=== PATIENT | male | born 1950 | race Caucasian/White ===

== ENCOUNTER 2022-11-13 10:22 | Outpatient (CLI) | payer MEDICARE, SELFPAY ==
[2022-11-13 15:19] LABS: Albumin* 4.3 g/dL (3.3-5.0)
[2022-11-13 15:20] LABS: Chloride* 104 mmol/L (96-114); Potassium* 4.5 mmol/L (3.6-5.1); Sodium* 139 mmol/L (135-149)
[2022-11-13 15:22] LABS: Aspartate Amino Transferase* 23 U/L (12-35); Bilirubin Total* 0.8 mg/dL (0.1-1.5); Carbon Dioxide* 29 mmol/L (20-32); Estimated Glomerular Filt Rate 79 ml/min
[2022-11-13 15:23] LABS: Alanine Aminotransferase* 29 U/L (4-50); Alkaline Phosphatase* 62 U/L (40-150); Blood Urea Nitrogen* 25 mg/dL (7-30); Calcium* 9.2 mg/dL (8.4-10.6); Glucose* 117 mg/dL (60-115); HDL Cholesterol* 40 mg/dL (>=40); Total Protein* 6.6 g/dL (6.0-8.3); Triglycerides* 153 mg/dL (40-149)
[2022-11-13 15:52] LABS: PSA Screen* 0.43 ng/mL (0.10-4.00)
[2022-11-14 19:05] LABS: Cholesterol* 109 mg/dL (90-199); LDL Cholesterol Calculated 38 mg/dL (<100)
== END 2022-11-13 10:23 | disposition home or self-care (01) ==
PROVIDERS: PCP Internal Medicine; Visit Provider Internal Medicine
DX: Z00.00 Encounter for general adult medical examination without abnormal findings (principal); N40.0 Benign prostatic hyperplasia without lower urinary tract symptoms; I25.10 Atherosclerotic heart disease of native coronary artery without angina pectoris; E78.6 Lipoprotein deficiency; E78.5 Hyperlipidemia, unspecified; I10 Essential (primary) hypertension
CPT/HCPCS: 80053; 80061; 84153

== ENCOUNTER 2023-11-15 09:09 | Outpatient (CLI) | payer MEDICARE, SELFPAY ==
--- OUTSIDE RECORDS SUMMARY | 2023-11-21 09:21 | XMS_ITS | Clinical Summary ---
Author Name Unknown Organization [employer] [facility] Address [place], [place] [address] Care Team Providers Care Broadcast Producer Name Role Phone Donny Koehler MD Primary Care Provider Allergies No known active allergies Medications Medication Sig Dispensed Refills Start Date End Date Status traZODone (DESYREL) 100 mg tablet Take 1 tablet by mouth at bedtime. 0 Active aspirin (ECOTRIN) 81 mg enteric coated tablet Take 1 tablet by mouth once daily with a meal. 0 Active dextroamphetamine-amp hetamine (ADDERALL XR) 30 mg Extended-Release capsule 0 07/13/2020 Active atorvastatin (LIPITOR) 20 mg tabletIndications:Cor onary artery disease involving craig coronary artery of craig heart without angina pectoris,Ascending aorta enlargement (HC) Take 1 Tablet (20 mg) by mouth once daily. 90 tablet. 3 03/30/2022 Active metoprolol succinate (TOPROL XL) 50 mg sustained-release tabletIndications:Cor onary artery disease involving craig coronary artery of craig heart without angina pectoris,Ascending aorta enlargement (HC) Take 1 Tablet (50 mg) by mouth once daily. 90 tablet. 3 03/30/2022 Active Active Problems No known active problems Social History Tobacco Use Types Packs/Day Years Used Date Smoking Tobacco: Former Smokeless Tobacco: Never Alcohol Use Standard Drinks/Week Comments Yes 0 (1 standard drink = 0.6 oz pur e alcohol) Social Connections Answer Date Recorded Frequency of Communication with Friends and Fami ly Not on file 11/11/2021 Financial Resource Strain Answer Date R ecorded Difficulty of Paying Living Expenses Not on file 11/11/2021 Difficulty of Paying Living Expenses Not on file 11/11/2021 Sex and Gender Information Value Date Recorded Sex Assigned at Not on file Gender Identity Not on file Sexual Orientation Not on file Obstetrics History Last Filed Vital Signs Vital Sign Reading Time Taken Comments Blood Pressure 124/76 03/30/2022 8:46 AM CDT Pulse 65 03/30/2022 8:46 AM CDT Temperature 36.4 ??C (97.5 ??F) 12/28/2021 9:50 AM CS T Respiratory Rate 14 03/31/2021 12:01 PM CDT Oxygen Saturation 99% 12/28/2021 9:50 AM RUG HOOKER Inhaled Oxygen Concentration - - Weight 89.4 kg (197 lb) 03/30/2022 8:46 AM CDT Height - - Body Mass Index - - Plan of Treatment Health Maintenance Due Date Last Done Comments Tdap 01/20/1960 Depression screening for age 12+ 1961 BMI (ht and wt on same day) for age 18+ 1967 Hepatitis C screening for age 18-79 1967 Tetanus booster 1969 Colonoscopy through age 75 1994 Lipids for age 45-75 1994 Zoster (shingles) series for age 50+ (1 of 2) 1999 Medicare Wellness for age 65+ 2014 Pneumococcal series for age 65+ (1 of 1 - PCV) 2014 COVID-19 vaccine series ( season) 2023 08/14/2021, 12/31/2020, 12/09/2020 Influenza for age 65+ 07/12/2023 Care Teams Broadcast Producer Relationship Specialty Start Date End Date Donny Koehler MD [address] [place] [address] PCP - General Internal Medicine 03/01/20
== END 2023-11-15 09:10 | disposition home or self-care (01) ==
LOC: NFLDREF 11-21 09:19
PROVIDERS: PCP Internal Medicine; Referring Provider Internal Medicine; Visit Provider Internal Medicine
DX: E78.5 Hyperlipidemia, unspecified (principal); I10 Essential (primary) hypertension; N40.0 Benign prostatic hyperplasia without lower urinary tract symptoms; Z12.5 Encounter for screening for malignant neoplasm of prostate
CPT/HCPCS: 80053; 80061; G0103

== ENCOUNTER 2024-06-20 18:20 | Emergency (ER) | payer MEDICARE, SELFPAY ==
[2024-06-20] VITALS (22 sets, daily range): BP systolic 108–147; BP diastolic 67–91; PULSE 67–77; RESP 16–18; TEMP 36.9; O2SAT 94–96
--- NOTE | 2024-06-20 18:33 | ED_ITS ---
HPI - Headache General Time Seen by Provider: 18:33 Date Seen: 06/20/24 Chief Complaint: Headache/Migraine Stated Complaint: Fall, head lac, LoC Time Seen by Provider: 06/20/24 18:33 Source: patient and family Mode of arrival: ambulatory Limitations: no limitations History of Present Illness HPI Narrative: Mr. Lugo is a very pleasant 74-year-old gentleman with history of hypertension, coronary artery disease, JULI who comes to the emergency room after a fall and suspected loss of consciousness. Patient currently lives near the [facility] in [facility] and had walked over to [employer]. He notes that he has chronic sciatica and on the way back he felt that he was leaning forward to compensate for that. When he returned to his [facility] he fell off the curb forward. He does not remember this. Workers near by I saw him and came to his rescue. Neighbors were also out walking and brought this gentleman back into his lobby where his was called. He remembers walking back and leaning forward and that he felt weak but notes that this is normal. He does not remember returning to the [facility] nor the fall. Patient notes that he has pain on his face, low back pain on the right that is chronic for him. He does not feel it that he has any more weak than normal. He does note that he ?felt funny in his left arm.? He has sustained abrasion to the palmar surface of his left hand. He denies chest pain or shortness of breath at this time or what he can remember when he was walking. He does have a history of seeing Cardiology at [facility] but denies a history of heart attack or arrhythmia. He is currently taking a baby aspirin daily. He has not taken anything for his pain. He denies any neck pain. Denies headache at this time. Related Data Previous Rx's ?Medication ?Instructions ?Recorded metoprolol succinate 50 mg 50 mg PO QDAY Hypertension #90 tabs 11/19/23 tablet,extended release 24 hr trazodone 100 mg tablet 100 mg PO QDAY Insomnia #90 tabs 11/19/23 atorvastatin 20 mg tablet 20 mg PO QDAY Hyperlipidemia #90 04/07/24 tabs hydrocodone 5 mg-acetaminophen 325 1 tab PO Q8H PRN pain #20 tabs 04/20/24 mg tablet prednisone 20 mg tablet 20 mg PO BID #10 tabs 04/20/24 dextroamphetamine-amphetamine ER 30 mg PO QDAY ADHD #30 caps 06/02/24 30 mg 24hr capsule,extend release Allergies Allergy/AdvReac Type Severity Reaction Status Date / Time No Known Allergies Allergy Unknown Verified 04/20/24 15:47 Review of Systems Status of ROS: Reports: 10 or more systems reviewed and unremarkable except as noted in History and below Const: Denies: fever or chills Eyes: Denies: change in vision or blurry vision ENMT: Denies: throat pain, neck pain or vertigo Cardio: Denies: chest pain, palpitations, swelling of feet/ankles or shortness of breath with exertion Resp: Denies: shortness of breath or cough GI: Denies: abdominal pain, nausea or vomiting : Denies: painful urination Musculo: Reports: back pain (Chronic); Denies: neck pain or extremity pain Integ/Breast: Denies: rash Neuro: Reports: headache and weakness in extremities (Right lower extremity); Denies: numbness in extremities, vertigo, confusion, behavioral changes, slurred speech, difficulty communicating thoughts, seizure-like activity or involuntary movements PFSH PFS Medical History Sciatica ?M54.30 - Sciatica, unspecified side (ICD-10) GERD (gastroesophageal reflux disease) ?K21.9 - Gastro-esophageal reflux disease without esophagitis (ICD-10) Hematoma ?T14.8XXA - Other injury of unspecified body region, initial encounter (ICD- 10) Bursitis ?M71.9 - Bursopathy, unspecified (ICD-10) Impetigo ?L01.00 - Impetigo, unspecified (ICD-10) Wart ?B07.9 - Viral wart, unspecified (ICD-10) ADHD ?F90.9 - Attention-deficit hyperactivity disorder, unspecified type (ICD-10) Colon polyp ?K63.5 - Polyp of colon (ICD-10) Hyperlipidemia ?E78.5 - Hyperlipidemia, unspecified (ICD-10) Insomnia ?G47.00 - Insomnia, unspecified (ICD-10) Hypolipidemia ?E78.6 - Lipoprotein deficiency (ICD-10) Social History What is your current living situation?: I presently have a place to live Problems where you live: no known problems In the past 12 months, utilities in danger of being shut off: no In past 12 months, lack of transportation kept you from medical appts, meetings, work, or getting things needed for daily living: no In the past 12 mos, have been you worried that your food would run out before you had money to buy more?: never true In the past 12 mos, the food you bought just didn't last and you didn't have money to buy more?: never true Smoking Status: Never smoker How often does anyone, including family, friends and others, physically hurt you : never How often does anyone, including family, friends and others, insult or talk down to you: never How often does anyone, including family, friends and others, threaten you with harm: never How often does anyone, including family, friends and others, scream or curse at you: never Little interest or pleasure in doing things: not at all Feeling down, depressed, or hopeless: not at all Exam Narrative: Exam Narrative: Alert and oriented. TT a was called due to loss of consciousness. Patient went immediately to CT upon triage in room 7. Primary survey Airway open. Breathing easy. Circulation-no active bleeding. Disability-obvious swelling around the left periorbital area as well as superficial skin avulsion of the left eyebrow and left cheek. GCS of 15. EOM is full and pupils are equal round reactive. Patient has a E 1-1/2 by point 5 cm skin avulsion over the left eyebrow. There is swelling around the periorbital area extending onto the left cheek where there is tenderness but no movement with palpation. On the left anterior temporal area there is also another area of superficial skin avulsion measuring 2 and half by 1 cm. Patient has also broken his left eye tooth. Tongue appears to be midline as without evidence of trauma. He does have superficial abrasion at the left upper and lower lips. Neck is otherwise supple with no midline tenderness. Oral cavity with moist mucous membranes. Heart with regular rate and rhythm and lungs are clear bilaterally. Abdomen soft nontender. Upper extremity strength and motor is intact with finger to nose. Negative Romberg. Superficial abrasion noted on the left palmar surface of the hand. No active bleeding. Lower extremities without any of bruising abnormality. Patient has weakness in dorsiflexion of the great toe. And hip flexion. He is stating that this is normal. Sensation is fully intact. Palpation down thoracic and lumbar spine without tenderness. No bruising noted on the back. Const: Vital Signs, click to edit/add: Vital Signs - 24 hr 06/20/24 18:25 Temperature 98.5 F Pulse Rate [Right Pulse Oximeter] 77 Respiratory Rate 18 Blood Pressure [Ri ght Upper Arm] 108/75 Pulse Oximetry 96 Oxygen Delivery Me thod Room Air Documenting provider has reviewed patient's vital signs: yes Course Course ED Course: Differential diagnosis is broad in this gentleman with a fall. Unsure if he had prodromal symptoms from underlying cardiac cause, hypotension or he lost his balance given the extensive walking with his chronic right-sided sciatica. Patient will undergo EKG, be placed on surveillance monitor and will have troponin, CBC, comprehensive panel CRP D done. Urinalysis is also ordered. Patient had already received head and cervical spine CT given the amnesia to the event. He certainly has no ongoing amnesia at this point. Will also add a facial CT given the trauma to the left cheek bone and periorbital areas. Reevaluation(s) Reevaluation #1: Continues to feel well with no evidence of arrhythmia. Vital Signs Vital signs: Initial Vital Signs Temperature 98.5 F 06/20/24 18:25 Temperature Source Temporal Artery Scan 06/20/24 18:25 Pulse Rate 77 06/20/24 18:25 Respiratory Rate 18 06/20/24 18:25 Blood Pressure 108/75 06/20/24 18:25 Blood Pressure Mean 86 06/20/24 18:25 Blood Pressure Position Sitting 06/20/24 18:25 Pulse Oximetry 96 06/20/24 18:25 Oxygen Delivery Method Room Air 06/20/24 18:25 Vital Signs Temperature 98.5 F 06/20/24 18:25 Pulse Rate 77 06/20/24 18:25 Respiratory Rate 18 06/20/24 18:25 Blood Pressure 108/75 06/20/24 18:25 Pulse Oximetry 96 06/20/24 18:25 Oxygen Delivery Method Room Air 06/20/24 18:25 Temperature 98.5 F 06/20/24 18:25 Pulse Rate 77 06/20/24 18:25 Respiratory Rate 18 06/20/24 18:25 Blood Pressure 108/75 06/20/24 18:25 Pulse Oximetry 96 06/20/24 18:25 Oxygen Delivery Method Room Air 06/20/24 18:25 MDM - Headache MDM Narrative Medical decision making narrative: 1. 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 Unfortunately patient himself has no recollection of the events. Does not think he had any chest pain but does note that he was walking further than he should have and is fairly certain that this occurred because of his sciatica. He states he found himself leaning forward to compensate and was hurrying home. I have suggested that patient be admitted tonight for ongoing evaluation. When I do speak about this later he is declining and wishes to go home. 2. Closed head injury-patient is amnestic to the events. Fortunately no ongoing anterograde amnesia. Head CT without evidence of intracranial bleed or skull fracture. 3. Syncope -EKG reassuring. T-wave inversions noted in 3 AVF and V1 through V6. Two sets of cardiac enzymes negative. I was able to find an old EKG in our [employer] system and EKG today is unchanged. Unsure if he had true syncope or loss of consciousness and amnesia was secondary to the fall. Again, recommend overnight monitoring but patient is declining at this time. 4. Facial injury-superficial skin avulsions. Does not appear to be any area that we would need to suture. Patient does have up-to-date tetanus. Would suggest application of bacitracin or Vaseline to the area twice daily. 5. Disposition-patient is wishing to go home at this time. I do strategy manager him to be able to make his own decisions at this time. I do explain that I cannot exclude an underlying cardiac cause or worsening sequela from the fall. He and his are present and do agree that they understand this. I would like them to seek medical attention by calling 911 or returning to the ER if Pancho would began experiencing vomiting, confusion, balance problems or worsening symptoms. They do agree. Medical Records Attestation: I reviewed the patient's medical records. Lab Data Attestation: I reviewed the patient's lab results. Labs: Lab Results 06/20/24 06/20/24 Range/Units 19:25 20:15 WBC 9.03 (4.50-11.00) K/uL RBC 4.70 (4.30-5.90) m/uL Hgb 14.8 (13.5-17.5) gm/dL Hct 44.3 (37.0-53.0) % MCV 94 (80-100) fL MCH 32 (26-34) pg MCHC 33 (32-36) gm/dL RDW Coeff of Elias 11.9 (11.5-15.5) % Plt Count 195 (140-440) K/uL Neut % (Auto) 77.7 H (42.0-72.0) % Lymph % (Auto) 12.7 L (20-44) % Levy % (Auto) 8.5 (0.0-11.0) % Eos % (Auto) 0.8 (0.0-7.0) % Baso % (Auto) 0.2 (0.0-3.0) % Neut # (Auto) 7.00 (1.7-7.0) K/uL Lymph # (Auto) 1.10 (0.90-2.90) K/uL Levy # (Auto) 0.80 (0.00-0.90) K/UL Eos # (Auto) 0.07 (0.00-0.50) K/uL Baso # (Auto) 0.02 (0.00-0.30) K/uL Abs Immat Gran (auto) 0.01 (0.00-0.30) K/uL Imm/Tot Granulo (auto) 0.1 % Sodium 137 (135-149) mmol/L Potassium 3.8 (3.6-5.1) mmol/L Chloride 107 (96-114) mmol/L Carbon Dioxide 26 (20-32) mmol/L Anion Gap 4 L (7-15) mEq/L BUN 22 (7-30) mg/dL Creatinine 1.0 (0.5-1.5) mg/dL Estimated GFR 78 ml/min Glucose 108 (60-115) mg/dL Calcium 9.0 (8.4-10.6) mg/dL Total Bilirubin 0.8 (0.1-1.5) mg/dL AST 23 (12-35) U/L ALT 20 (4-50) U/L Alkaline Phosphatase 63 (40-150) U/L Total Protein 6.4 (6.0-8.3) g/dL Albumin 3.9 (3.3-5.0) g/dL Urine Color Yellow (Yellow) Urine Appearance Clear (Clear) Urine pH 6.0 (5.0-8.5) Ur Specific [place] 1.025 (1.000-1.030) Urine Protein Negative (Negative) Urine Glucose (UA) Negative (Negative) Urine Ketones 1+ A (Negative) Urine Blood Negative (Negative) Urine Nitrite Negative (Negative) Urine Bilirubin Negative (Negative) Urine Urobilinogen 1.0 (0.2-1.0) Ur Leukocyte Esterase Negative (Negative) Urine RBC 0-2 (0-2) Urine WBC 0-2 (0-5) Ur Squamous Epith Cells None (None-Few) Urine Bacteria None (None) POC Troponin I 0.01 (0.01-0.04) ng/ml Imaging Data CT scan - head: Attestation: I have reviewed the pertinent imaging results. My impression: I do not note any obvious intracranial bleed or fractures. Radiologist's impression: There is no intra-axial or extra-axial fluid collection. There is no mass effect or midline shift. There is age-related cortical atrophy with mild sulcal widening and ex vacuo dilatation of the lateral ventricles. There are chronic small vessel disease changes in the subcortical and periventricular white matter without lost bowie-white differentiation. The orbits and their contents are grossly within normal limits. The bony calvarium is grossly intact. There is minimal bubbly secretions and air-fluid levels within the maxillary sinuses. Otherwise the paranasal sinuses are clear. The mastoid air cells are well aerated. Impression: Age-related and chronic small-vessel disease changes of the brain without acute intracranial abnormality. Cervical spine CT: Attestation: I have reviewed the pertinent imaging results. Radiologist's impression: The cervical vertebral body heights are grossly maintained with minimal endplate Schmorl`s defects. There is trace anterolisthesis of C2 on C3. Otherwise grossly preserved cervical lordosis. There is no displaced fracture or dislocation. There is [id number] multilevel degenerative disc disease with disc height loss and marginal osteophyte formation. Mild facet arthrosis is appreciated. There is mild biapical pleural thickening. Impression: Moderate degenerative changes of the cervical spine without acute osseous abnormality. Facial CT: Attestation: I have reviewed the pertinent imaging results. Radiologist's impression: eft facial and periorbital hematomas. No underlying fracture. Normal contour of the adjacent globe without evidence of penetrating injury. No radiopaque foreign body. Mild mucosal thickening within the inferior maxillary sinuses with small dependent fluid level on the left. Absent left maxillary lateral incisor perhaps a sequela of trauma. Impression: 1. Left facial and periorbital hematomas. 2. No acute fracture or traumatic subluxation. 3. Absence of the maxillary left lateral incisor tooth, possibly posttraumatic. 4. Mild mucosal thickening within the maxillary sinuses with left maxillary fluid level perhaps reflecting acute sinus disease. ECG Data Attestation: I personally reviewed and interpreted this ECG as follows: ECG interpretation date: 06/20/24 Interpretation: EKG shows sinus rhythm at a rate of 76. T-wave inversion noted in 3 a via V3 through V6. QT and AL intervals within normal limits. EKG in our [employer] EMR shows an EKG that appears the same. No acute changes and T-wave inversions are present. Discharge Plan Discharge Clinical Impression: CHI (closed head injury), Sciatica, Sinusitis, Dental injury Patient Disposition: Home w/ Parent or Adult Condition: Improved Additional Instructions: You may apply a thin layer of bacitracin or Vaseline to the areas of skin avulsion on the face. You can do this twice a day. Monitor for infection. Your tetanus does appear to be up-to-date. Follow-up with Dr. Koehler You have a concussion and therefore I do suggest light activity, avoiding alcohol for at least 48 hours and monitoring. Return to the emergency room for confusion worsening balance problems, vomiting and as needed. On the CT it did appear that you had a sinus infection. Will place you on amoxicillin that can be gained through our [employer] machine. Prescriptions: No Action prednisone 20 mg tablet 20 mg PO BID Qty: 10 0RF hydrocodone-acetaminophen 5-325 mg tablet 1 tab PO Q8H PRN (Reason: pain) Qty: 20 0RF trazodone 100 mg tablet 100 mg PO QDAY Qty: 90 3RF metoprolol succinate 50 mg tablet extended release 24 hr 50 mg PO QDAY Qty: 90 3RF atorvastatin 20 mg tablet 20 mg PO QDAY Qty: 90 3RF dextroamphetamine-amphetamine 30 mg capsule,extended release 24hr 30 mg PO QDAY Qty: 30 0RF Follow Up/Referrals: Donny Koehler MD [Primary Care Provider] - Stand Alone Forms: [id number] Info Instructions
--- NOTE | 2024-06-20 18:40 | CRLHL7_ITS ---
For Patients: As a result of the Century Cures Act, medical imaging exams and procedure reports are released immediately into your electronic medical record. You may view this report before your referring provider. If you have questions, please contact your health care provider. Indication: Fall Technique: Volumetric multidetector CT images of the cervical spine were obtained without the administration of IV contrast. Comparison: None available. Findings: The cervical vertebral body heights are grossly maintained with minimal endplate Schmorl`s defects. There is trace anterolisthesis of C2 on C3. Otherwise grossly preserved cervical lordosis. There is no displaced fracture or dislocation. There is [id number] multilevel degenerative disc disease with disc height loss and marginal osteophyte formation. Mild facet arthrosis is appreciated. There is mild biapical pleural thickening. Impression: Moderate degenerative changes of the cervical spine without acute osseous abnormality. Please note that all CT scans at this facility use dose modulation, iterative reconstruction, and/or weight-based dosing when appropriate to reduce radiation dose to as low as reasonably achievable. Dictated by Bharathi Aldrich MD @ 06/20/2024 7:54:35 PM (Electronically Signed)
--- NOTE | 2024-06-20 18:40 | CRLHL7_ITS ---
For Patients: As a result of the Century Cures Act, medical imaging exams and procedure reports are released immediately into your electronic medical record. You may view this report before your referring provider. If you have questions, please contact your health care provider. Indication: Fall Technique: Volumetric multidetector CT images of the head were obtained without the administration of low osmolar intravenous contrast. Comparison: None available Findings: There is no intra-axial or extra-axial fluid collection. There is no mass effect or midline shift. There is age-related cortical atrophy with mild sulcal widening and ex vacuo dilatation of the lateral ventricles. There are chronic small vessel disease changes in the subcortical and periventricular white matter without lost bowie-white differentiation. The orbits and their contents are grossly within normal limits. The bony calvarium is grossly intact. There is minimal bubbly secretions and air-fluid levels within the maxillary sinuses. Otherwise the paranasal sinuses are clear. The mastoid air cells are well aerated. Impression: Age-related and chronic small-vessel disease changes of the brain without acute intracranial abnormality. Please note that all CT scans at this facility use dose modulation, iterative reconstruction, and/or weight-based dosing when appropriate to reduce radiation dose to as low as reasonably achievable. Dictated by Bharathi Aldrich MD @ 06/20/2024 7:50:24 PM (Electronically Signed)
--- NOTE | 2024-06-20 19:09 | CRLHL7_ITS ---
For Patients: As a result of the Century Cures Act, medical imaging exams and procedure reports are released immediately into your electronic medical record. You may view this report before your referring provider. If you have questions, please contact your health care provider. Indication: Fall, left facial trauma. Technique: Noncontrast CT of the facial bones with multiplanar reconstruction utilizing bone and soft tissue algorithms. Comparison: None available. Findings: Left facial and periorbital hematomas. No underlying fracture. Normal contour of the adjacent globe without evidence of penetrating injury. No radiopaque foreign body. Mild mucosal thickening within the inferior maxillary sinuses with small dependent fluid level on the left. Absent left maxillary lateral incisor perhaps a sequela of trauma. Impression: 1. Left facial and periorbital hematomas. 2. No acute fracture or traumatic subluxation. 3. Absence of the maxillary left lateral incisor tooth, possibly posttraumatic. 4. Mild mucosal thickening within the maxillary sinuses with left maxillary fluid level perhaps reflecting acute sinus disease. Please note that all CT scans at this facility use dose modulation, iterative reconstruction, and/or weight-based dosing when appropriate to reduce radiation dose to as low as reasonably achievable. Dictated by Ward Gaytan MD @ 06/20/2024 8:26:02 PM (Electronically Signed)
--- OUTSIDE RECORDS SUMMARY | 2024-06-20 19:21 | XMS_ITS | Clinical Summary ---
Author Organization [employer] [facility] Address [place], [place] [address] Care Team Providers Care Imaging Specialist Name Role Phone Donny Koehler MD Primary [...] hetamine (ADDERALL XR) 30 mg Extended-Release capsule 07/13/2020 Active atorvastatin (LIPITOR) 20 mg tabletIndications:Cor onary artery disease involving [place] coronary artery of [place] heart without angina pectoris,Ascending aorta enlargement (HC) Take 1 Tablet (20 mg) by mouth once daily. 90 tablet. 3 03/30/2022 Active metoprolol succinate (TOPROL XL) 50 mg sustained-release tabletIndications:Cor onary artery disease involving [place] coronary artery of [place] heart without angina pectoris,Ascending aorta enlargement (HC) [...] CDT Oxygen Saturation 99% 12/28/2021 9:50 AM REIMBURSEMENT ANALYST Inhaled Oxygen Concentration - - Weight 89.4 [...] 08/14/2021, 12/31/2020, 12/09/2020 Influenza for age 65+ 07/12/2024 Care Teams Imaging Specialist Relationship Specialty Start Date End Date Donny Koehler MD [address] [place] [address] PCP - General Internal Medicine 03/01/20
[2024-06-20 19:34] LABS: Basophils Absolute Auto 0.02 K/uL (0.00-0.30); Basophils Percent Auto 0.2 % (0.0-3.0); Eosinophils Absolute Auto 0.07 K/uL (0.00-0.50); Eosinophils Percent Auto 0.8 % (0.0-7.0); Hematocrit 44.3 % (37.0-53.0); Hemoglobin* 14.8 gm/dL (13.5-17.5); Immature Granulocytes Abs Auto 0.01 K/uL (0.00-0.30); Immature Granulocytes Pct Auto 0.1 %; Lymphocytes Percent Auto 12.7 % (20-44); Mean Corpuscular HGB Conc 33 gm/dL (32-36); Mean Corpuscular Hemoglobin 32 pg (26-34); Mean Corpuscular Volume 94 fL (80-100); Monocytes Percent Auto 8.5 % (0.0-11.0); Neutrophils Percent Auto 77.7 % (42.0-72.0); Platelet Count* 195 K/uL (140-440); RDW Coefficient of Variation % 11.9 % (11.5-15.5); White Blood Count* 9.03 K/uL (4.50-11.00)
[2024-06-20 19:39] LABS: Slide Review Reflex No
[2024-06-20 19:47] LABS: Albumin* 3.9 g/dL (3.3-5.0); Chloride* 107 mmol/L (96-114); Potassium* 3.8 mmol/L (3.6-5.1); Sodium* 137 mmol/L (135-149)
[2024-06-20 19:49] LABS: Anion Gap 4 mEq/L (7-15); Aspartate Amino Transferase* 23 U/L (12-35); Bilirubin Total* 0.8 mg/dL (0.1-1.5); Carbon Dioxide* 26 mmol/L (20-32); Estimated Glomerular Filt Rate 78 ml/min
[2024-06-20 19:50] LABS: Alanine Aminotransferase* 20 U/L (4-50); Alkaline Phosphatase* 63 U/L (40-150); Blood Urea Nitrogen* 22 mg/dL (7-30); Glucose* 108 mg/dL (60-115); Total Protein* 6.4 g/dL (6.0-8.3)
[2024-06-20 19:53] LABS: Troponin, Point-of-Care* 0.01 ng/ml (0.01-0.04)
[2024-06-20 20:30] LABS: Appearance Urine Clear (Clear); Bilirubin Urine Negative (Negative); Blood Urine Negative (Negative); Color Urine Yellow (Yellow); Glucose Urine Negative (Negative); Ketones Urine 1+ (Negative); Leukocyte Esterase Urine Negative (Negative); Nitrite Urine Negative (Negative); Protein Urine Negative (Negative); Specific Gravity Urine 1.025 (1.000-1.030)
[2024-06-20 20:34] LABS: RBC Urine 0-2 (0-2); WBC Urine 0-2 (0-5)
[2024-06-20 21:13] LABS: Troponin, Point-of-Care* 0.01 ng/ml (0.01-0.04)
== END 2024-06-20 21:34 | disposition home or self-care (01) ==
PROVIDERS: Emergency Provider Family Medicine; PCP Internal Medicine
DX: S09.90XA Unspecified injury of head, initial encounter (principal); M54.31 Sciatica, right side; J32.9 Chronic sinusitis, unspecified; K08.89 Other specified disorders of teeth and supporting structures
CPT/HCPCS: 36415; 70450; 70486; 72125; 80053; 81001; 84484; 85025; 93005; 99285; 99291; G0390

== ENCOUNTER 2024-06-23 10:45 | Outpatient (RCR) | payer MEDICARE, SELFPAY ==
--- NOTE | 2024-05-01 07:31 | PT.OPEX ---
[facility] Eval Start: 04/30/24 12:35 Freq: Status: Active Protocol: Document 04/30/24 12:36 CRP (Rec: 04/30/24 15:25 CRP [id number]) E-signed By Luke Duran PT Physical Therapy Outpatient Evaluation Insurance Information Recert Due Date 07/29/24 Insurance Name Medicare B Medical Diagnosis Sciatica Referring MD Dr Koehler Subjective Subjective Pt reports he has had pain into groin to the R hip and down the thigh to the R ankle. Can have burning pain into the R calf. Started about April 16. Can on abruptly while trying to load the sprigger. Since then the pain has been significant. Does have pain meds that he has attempted to hold off on. Mornings are very pain. 4: 00am this morning he woke with severe pain. Did take a week long dose of prednisone that did not help. When this was bad there was nothing that helped. Walking is the most aggravating. Pain also increases with lifting, pushing. Still some discomfort sitting but not as painful as walking. Pt would like to be playing pickleball consistently. Sometimes the R leg can feel like rubber. Current Work Status Retired Objective Other/Pertinent Objective Trunk ROM: flex min/mod dec with mild pain, ext mod/imelda dec, R SB min/mod dec with mild pain, L SB mod dec with R hip pain, Bilat rot min/mod dec Hip ROM WNL bilat Knee ROM WNL bilat SLR testing shows possible adverse neurodynamics without reproduction of pain MMT: R great toe ext 3-/5. ALl other Myotomes WNL. Poor control on lumbopelvic flexion Segmental testing: L SL - rotation mobs - restricted with mild pain into hip. L SL L SB mobs painfree but restricted Assessment Assessment/Impression Pt presents to the clinic with signs and sxs consistent with R sided lumbar radiculopathy. Pts presentation is characterized by painful loss of lumbar ROM, painful restriction of lower lumbar spine segments, myotomal weakness into the R foot, adverse neurodynamics and poor lumbopelvic motor control. Skilled PT is necessary to incorporate ther ex, nm angella, manual therapy and pt education to decrease pain and improve functional mobility. 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 Pt will be independent with HEP to allow for progression of ROM and strength in order to reach functional goals. 2. 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 3. Pt will walk for exer x 15 min with 90% decrease in pain in 12 weeks. Coordination/Communication With Referral Source Treatment Plan/Direct Interventions Joint Mobilization,Manual Therapy,Neuromuscular Re-ed, Self-Care/Home Management, Therapeutic Activities, Therapeutic Exercises Frequency/Duration 1-2x/wk for 12 weeks Patient Will Be Discharged From Therapy Completion of LTG(s),Skills Plateau,Independent w/HEP, Independently Progressing Evaluation Billing Untimed Code Treatment Minutes 30 Complexity Moderate Certification Information Initial Certification Date 04/30/24 Ending Certification Date 07/29/24 Provider Signature Required Yes Provider Signature Shows Agreement With POC & Medical Necessity Physician NPI Number Write NPI# Here Physician Comment/Change : Physician Signature & Date Requested Please Sign/Date Here
== END 2024-10-21 23:59 | disposition home or self-care (01) ==
PROVIDERS: PCP Internal Medicine; Visit Provider Internal Medicine
DX: M54.31 Sciatica, right side (principal); Z51.89 Encounter for other specified aftercare
CPT/HCPCS: 97012; 97110; 97116; 97140; 97162

== ENCOUNTER 2024-09-04 12:40 | Outpatient (CLI) | payer MEDICARE, SELFPAY ==
--- OUTSIDE RECORDS SUMMARY | 2024-09-04 12:42 | XMS_ITS | Clinical Summary ---
Author Organization [employer] [facility] Address [place], [place] [address] Care Team Providers Care Sand Caster Name Role Phone Donny Koehler MD Primary [...] 20 mg tabletIndications:Cor onary artery disease involving [place] coronary artery of [place] heart without angina pectoris,Ascending aorta enlargement (HC) Take 1 Tablet (20 mg) by mouth once daily. 90 tablet. 3 03/30/2022 Active metoprolol succinate (TOPROL XL) 50 mg sustained-release tabletIndications:Cor onary artery disease involving [place] coronary artery of [place] heart without angina pectoris,Ascending aorta enlargement (HC) [...] CDT Oxygen Saturation 99% 12/28/2021 9:50 AM BURGLAR ALARM MECHANIC Inhaled Oxygen Concentration - - Weight 89.4 [...] 65+ (1 of 1 - PCV) 2014 RSV vaccine for adults or pr egnancy (1 - 1-dose 75+ series) 01/20/2024 COVID-19 vaccine series ( season) 2024 08/14/2021, 12/31/2020, 12/09/2020 Influenza for age 65+ 07/12/2024 Care Teams Sand Caster Relationship Specialty Start Date End Date Donny Koehler MD [address] [place] [address] PCP - General Internal Medicine 03/01/20
--- NOTE | 2024-09-04 13:00 | CRLHL7_ITS ---
For Patients: As a result of the Century Cures Act, medical imaging exams and procedure reports are released immediately into your electronic medical record. You may view this report before your referring provider. If you have questions, please contact your health care provider. INDICATION: Right radiculopathy. COMPARISON: 11/27/2021. TECHNIQUE: Sagittal T1, T2, and STIR sequences. Axial T1 and T2 weighted sequences. FINDINGS: Normal vertebral body alignment. No fractures. No vertebral body loss of height. No ligamentous injury. No suspicious osseous lesions. Normal conus terminates at L1. T12-L1 L1-2: No spinal canal or neural foraminal narrowing. L2-3: Disc degeneration. No narrowing of spinal canal. No neural foraminal narrowing. L3-4: Disc degeneration posted disc bulge. No narrowing of the spinal canal. Mild narrowing of bilateral foramina. Mild facet arthropathy. L4-5: Disc degeneration. Mild Modic type 1 endplate changes. Diffuse disc bulge eccentric to the right. Mild narrowing of spinal canal. Right subarticular recess narrowing and impingement of the traversing right L5 nerve root. Facet arthropathy results in moderate severe right and [id number] left neural foraminal narrowing. Potential impingement of the exiting right L4 nerve root. Mild facet arthropathy. L5-S1: Disc degeneration. No narrowing of the spinal canal. No impingement of the traversing S1 nerve roots. Mild narrowing of bilateral foramina. Moderate facet arthropathy. Normal visualized SI joints. Normal paraspinal soft tissues. IMPRESSION: 1. Normal alignment. No fractures. 2. Lumbar spondylosis. 3. At L3-4, mild narrowing of the bilateral neural foramina. 4. At L4-5, mild narrowing of the spinal canal. Right subarticular recess narrowing with potential impingement of the traversing right L5 nerve root. Moderate to severe right and [id number] left neural foraminal narrowing. Potential impingement of the exiting right L4 nerve root 5. At L5-S1, mild narrowing of the bilateral neural foramina Dictated by Jakob Gaytan MD @ 09/07/2024 11:09:17 AM (Electronically Signed)
== END 2024-09-04 12:41 | disposition home or self-care (01) ==
PROVIDERS: PCP Internal Medicine; Visit Provider Internal Medicine
DX: M54.16 Radiculopathy, lumbar region (principal); M47.896 Other spondylosis, lumbar region; M51.26 Other intervertebral disc displacement, lumbar region; M51.27 Other intervertebral disc displacement, lumbosacral region
CPT/HCPCS: 72148

== ENCOUNTER 2024-09-16 13:45 | Outpatient (RCR) | payer MEDICARE, SELFPAY ==
--- NOTE | 2024-07-17 14:15 | PT.OPEX ---
PT [place] Outpatient Eval PT [facility] Outpatient Eval Start: 07/17/24 07:01 Freq: Status: Active Protocol: Document 07/17/24 07:01 HLA (Rec: 07/17/24 14:06 HLA Laptop) E-signed By Dipika Sanchez, PT, DPT Physical Therapy Outpatient Evaluation Insurance Information Insurance Name Other; See Comments Insurance Information/Comments [facility] Medical Diagnosis fall onto face, closed head injury 509.90XA; gait instability Treating Diagnosis fall, weakness, impaired balance, gait instability Referring MD Bradley Koehler Subjective Preferred Name Art Subjective Lives at the [facility]. Pt has PMHx of GERD, hematoma, bursitis, and CAD. Had some PT recently for sciatic which resolved. He was encouraged to use a cane for R hip abd weakness and did get that. Pt began walking with a cane. Found he has been getting more wobbly and shaky over the past few weeks. Was walking downtown on June 20, found he was pitching forward , wobbly, hit curb, fell onto his face with R sided blunt trauma. He did lose consciousness. Police helped him inside and called his . Pt was seen at [facility] ED, CTs were negative. He then saw his PCP who ordered physical therapy. Pt's goals of therapy are to avoid falling, get back to amb no device, return to pickleball which he has not done since March 2024. 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 Still using cane as recommended. Weight Bearing Status Weight Bear as Tolerated Therapy Limitations/Systems Review Not Limited,Other Medical Problem Objective Range of Motion AROM WNL UES/LEs, back Strength 4/5 R hip abd, quad 4+/5, ankle DF/PF 4/5 on R L LE 5/5 Swelling no swelling Balance & Gait 5 time sit<>stand 14 sec indicates low fall risk Functional Reach 10 inches, low fall risk TUG 16 sec, normal <15 sec for pt's age Villa 44/56 shows fall risk, supports use of AD for gt amb fwd/back sba, perturbations does lose balance posteriorly, cga balance, with eyes closed marked sway in standing. 500 feet with cane, level hips , no sway. Without AD, side to side sway, + Trendelenburg, self report of leg 'wobbling' with fatigue. Pt was instructed in activity level for home, resting, planning ahead if walking outdoors to schedule rests, using his cane . 13 stairs step to pattern, pt encouraged to lead up with his L LE, down with R. Sensation/Reflexes intact to light touch Functional Test Performed & Score see balance tests above Assessment Assessment/Impression Lives at the [facility]. Pt has PMHx of GERD, hematoma, bursitis, and CAD. Had some PT recently for sciatic which resolved. He was encouraged to use a cane for R hip abd weakness and did get that. Pt began walking with a cane. Found he has been getting more wobbly and shaky over the past few weeks. Was walking downtown on June 20, found he was pitching forward , wobbly, hit curb, fell onto his face with R sided blunt trauma. He did lose consciousness. Police helped him inside and called his . Pt was seen at [facility] ED, CTs were negative. He then saw his PCP who ordered physical therapy. Pt's goals of therapy are to avoid falling, get back to amb no device, return to pickleball which he has not done since March 2024. Pt presents with normal ROM, strength decreased R LE at hip 4/5 abd, quad 4+/5, PF/DF 4/5 . Pt's balance testing shows fall risk, VILLA 44/56. He is using his cane, amb with stable gt with cane, tends to hurry with fatigue. + Trendelenburg no device, pt encouraged to use cane. Discussed lights on at night, pausing when getting up, standing tall before amb as he does appear to rely on his vision for balance. PT issued balance ex, standing strength ex, will cont to work on balance, gt, stairs, fall prevention and strength. Good rehab potential to achieve goals. Plan of Care Rehabilitation Potential Good Physical Therapy Goals Within 8 weeks 1. Pt will score >51/56 on Tinetti balance test, goal no device. 2. Pt will be able to perform SLS no device x 30 sec for reduced fall risk. 3. Pt will be ind in HEP to promote strength, balance, reduce fall risk. 4. Pt will amb 15 min no device ind, level hips, no loss of balance for community ambulation. 5. 13 stairs ind, reciprocally to his condo. Treatment Plan/Direct Interventions Gait Training,Heat,Ice/Cold/ Vasopneumatic,Manual Therapy, Neuromuscular Re-ed,Self-Care/ Home Management,Therapeutic Activities,Therapeutic Exercises Patient Will Be Discharged From Therapy Completion of LTG(s),Skills Plateau,Independent w/HEP, Independently Progressing Evaluation Billing Untimed Code Treatment Minutes 18 PT Eval No Charge No Complexity Low Certification Information Provider Signature Required Yes Provider Signature Shows Agreement With POC & Medical Necessity Physician NPI Number Write NPI# Here Physician Comment/Change : Physician Signature & Date Requested Please Sign/Date Here
--- NOTE | 2024-09-16 14:27 | PT.OPDNX ---
PT [place] Outpatient Daily Note PT [facility] Outpatient Daily Note Start: 07/17/24 07:01 Freq: Status: Active Protocol: Document 09/16/24 09:25 LISANDRO (Rec: 09/16/24 14:27 HLA [id number]) E-signed By Dipika Sanchez, PT, DPT PT OP Daily Progress Note Visit Information Note Type Daily Note,Discharge Note Visit Number [id number] Insurance Information Insurance Name Other; See Comments Insurance Information/Comments [facility] Medical Diagnosis fall onto face, closed head injury 509.90XA; gait instability Treating Diagnosis fall, weakness, impaired balance, gait instability Imaging Report Information MRI shows narrowing canal and possible spinal root impingement L4 and 5, spondolysisthesis. Referring MD Bradley Koehler Subjective Preferred Name Art Subjective Reports pain has gone down, amb no device in condo and halls, brings cane outdoors mainly for safety. He can amb outdoors up to 15 min. He is doing his ex, elliptical up to 15 min. Reports pain has not occurred since last visit. Discussed cont with his ex program as his pain does appear to be managed with ex and activity. Pain Comments no pain today. Date of Last Physician Visit 06/24/24 Precautions Treatment Precautions/Contraindications Fall onto face with CHI, recent LB pain, R sciatica and R weakness, pt feels it has resolved. Still using cane as recommended. Weight Bearing Status Weight Bear as Tolerated Home Exercise Home Exercise Comments HEP includes LB single and dbl knee to chest 15 x 5, pelvic tilt with marches x 10, supine sciatic nerve flossing 10 reps, pt can only hold for 3 count pt to do daily to every other day Pt is doing elliptical standing x 10-15 min, walking daily in halls of apt, outdoors when able. Cane outdoors, no device indoors. Stairs for ex as well. Winter activity modification discussed. Standing at counter: HF, abd, ext, heel toe raises, hip flex -ER-add-down x 10. SLS at counter 15 sec x 3, 1/4 wall squats 10 sec hold x 10. SLS and Tandem stance, 15 sec each holding 1 UE support. Objective Other/Pertinent Objective Reviewed single double knee to chest 15 sec x 5 , pelvic tilt with marches x 10, supine sciatic nerve flossing 10 reps, pt can only hold for 3 count pt to do daily to every other day. Standing at counter: HF, abd, ext, heel toe raises, hip flex -ER-add-down x 10. SLS at counter 15 sec x 3, 1/4 wall squats 10 sec hold x 10. SLS and Tandem stance, 15 sec each holding 1 UE support. Functional Test Performed & Score Strength 5-/5 R hip and knee, 5/5 L hip/knee. VILLA with pt scoring up from 49/56 to 53/56, shows low fall risk. Patient Instructed in Risks/Benefits Yes Therapeutic Exercise Therapeutic Exercise Minutes (minutes) 30 Therapeutic Exercise: To Restore Access Code: [email or web address] Functional Status URL: [email or web address] Date: 07/31/2024 Prepared by: Dipika Sanchez Exercises - Sit to Stand with Armchair - 1 x daily - 7 x weekly - 1 sets - 5-10 reps - Standing March with Counter Support - 1 x daily - 7 x weekly - 1 sets - 10 reps - Standing Hip Abduction with Counter Support - 1 x daily - 7 x weekly - 1 sets - 10 reps - Heel Toe Raises with Counter Support - 1 x daily - 7 x weekly - 1 sets - 10 reps - Single Leg Stance with Support - 1 x daily - 7 x weekly - 1 sets - 3 reps - 15 hold - Wall Quarter Squat - 1 x daily - 7 x weekly - 1 sets - 10 reps - Frogger - 1 x daily - 7 x weekly - 1 sets - 10 reps Supine knee to chest, piriformis stretch, pelvic tilt with HS, sciatic nerve flossing x 10. added 09/03/24 Tandem stance and SLS 15 sec x 3 reps, 1 UE support Gait & Stair Training Gait & Stair Training Comments Up with cane ind and no device , level hips, no weakness R knee. 1000 feet indoors, up to 20 min outdoors with cane. 13 stairs mod ind with railing Neuromuscular Re-Ed Neuromuscular Reeducation Minutes ( 12 minutes) Neuromuscular Reeducation Comments Reviewed SLS 1 UE support, tandem stance 1-2 fingers 15 sec x 3 each leg. Balance and fall prevention reviewed. VILLA 53/56 shows low fall risk . Does use cane due to intermittent right sciatic pain. Treatment Minutes Timed Code Treatment Minutes 42 Total Treatment Time 42 Billing Units Neuromuscular Reeducation Units 1 Therapeutic Exercise Units 2 Assessment/Impression Assessment/Impression Pt is s/p fall with CHI, recent sciatica, now with weakness, impaired balance affecting his ambulation level surfaces and stairs. No episodes of LB/R radicular pain, did have MRI which showed foraminal narrowing, possible nerve root impingement at L4-L5. Pt denies pain today. Strength R LE 5-/5 with L LE 5/5. Gt with and without cane shows good stability, no Trendelenburg or knee/quad instability. Pt amb at home no device, cane community for safety. He has been doing his ex, reviewed back, LE strength and balance ex. Added SLS to regimen. Pt advised to cont with his ex, if back pain returns, see Dr. Koehler. He may ask about an injection if pain returns and could also return for LB PT. Pt is aware and conveys that if he moves, does his ex and walks, he does have less back pain. Activity level and winter weather modifications discussed. PT goals met except for R SLS 30 sec he does need 1 UE support. Pt to cont with HEP as instructed, dc PT. Plan of Care Physical Therapy Goals Within 8 weeks 1. Pt will score >51/56 on [place] balance test, goal no device. goal met 2. Pt will be able to perform SLS no device x 30 sec for reduced fall risk. partially met, can stand on L, R needs sba 3. Pt will be ind in HEP to promote strength, balance, reduce fall risk. goal met 4. Pt will amb 15 min no device ind, level hips, no loss of balance for community ambulation. goal met 5. 13 stairs ind, reciprocally to his condo. goal met Daily Plan of Care Discharge Equipment Information Equipment Information has cane community distances Recertification Information Initial Certification Date 07/17/24 Recertification Due Date 10/14/24 Discharge Note Initial Pain Level LB to R LE radicular pain, weakness, fall Pain Level at Discharge denies pain Interventions Provided During Treatment Gait Training,Manual Therapy, Neuromuscular Re-Ed, Therapeutic Activities, Therapeutic Exercise Interventions Provided During Treatment progressed in strength and Comments balance, home program instructed, pt using elliptical and amb program at home, conts with LB ex. Recommendations/Reason for Discharge Met All Therapy Goals Discharge Instructions Pt denies pain today. Strength R LE 5-/5 with L LE 5/5. Gt with and without cane shows good stability, no Trendelenburg or knee/quad instability. Pt amb at home no device, cane community for safety. He has been doing his ex, reviewed back, LE strength and balance ex. Added SLS to regimen. Pt advised to cont with his ex, if back pain returns, see Dr. Koehler. He may ask about an injection if pain returns and could also return for LB PT. Pt is aware and conveys that if he moves, does his ex and walks, he does have less back pain. Activity level and winter weather modifications discussed. PT goals met except for R SLS 30 sec he does need 1 UE support. Pt to cont with HEP as instructed, dc PT.
== END 2025-01-14 23:59 | disposition home or self-care (01) ==
PROVIDERS: PCP Internal Medicine; Visit Provider Internal Medicine
DX: S09.90XA Unspecified injury of head, initial encounter (principal); R26.9 Unspecified abnormalities of gait and mobility; R26.81 Unsteadiness on feet; R53.1 Weakness; W19.XXXA Unspecified fall, initial encounter; Z51.89 Encounter for other specified aftercare
CPT/HCPCS: 97110; 97112; 97116; 97161

== ENCOUNTER 2024-11-30 08:17 | Outpatient (CLI) | payer MEDICARE, SELFPAY | END 2024-11-30 08:18 | disposition home or self-care (01) | LOC: NFLDREF 12-02 01:40 | PROVIDERS: PCP Internal Medicine; Referring Provider Internal Medicine; Visit Provider Internal Medicine | DX: I10 Essential (primary) hypertension (principal); N40.0 Benign prostatic hyperplasia without lower urinary tract symptoms; E78.5 Hyperlipidemia, unspecified; Z12.5 Encounter for screening for malignant neoplasm of prostate | CPT/HCPCS: 80053; 80061; G0103 ==

== ENCOUNTER 2024-12-11 09:49 | Outpatient (CLI) | payer MEDICARE, SELFPAY | END 2024-12-11 09:50 | disposition home or self-care (01) | LOC: US 09:50 | PROVIDERS: PCP Internal Medicine; Visit Provider Internal Medicine | DX: R10.9 Unspecified abdominal pain (principal) | CPT/HCPCS: 76705 ==

== ENCOUNTER 2025-02-08 06:09 | Day surgery (SDC) | payer MEDICARE, SELFPAY ==
[2025-02-08] VITALS (13 sets, daily range): BP systolic 120–150; BP diastolic 66–93; PULSE 56–77; RESP 14–16; TEMP 36.3–36.5; O2SAT 94–98; BMI 27.1
[2025-02-08] MEDS: LACTATED RINGERS 1000 ML 1,000 ML 100 ML IV (06:10)
[2025-02-08] MEDS: SODIUM CHLORIDE 0.9 % (FLUSH) 10 ML SYRINGE IVF (06:39)
[2025-02-08] MEDS: BUPIVACAINE 0.25% 30 ML INJECTION ×2 (07:20→08:30)
--- NOTE | 2025-02-08 07:33 | W.PM.H&PU ---
History & Physical Update History & Physical Update H&P Reviewed and patient assessed: No changes noted
--- NOTE | 2025-02-08 07:34 | PM.GSPRC ---
Operative Note Date of procedure: 02/08/25 Pre-op diagnosis: Symptomatic umbilical hernia Post-op diagnosis: Same Type of Procedure: Open repair 2 cm umbilical hernia with mesh Indications: The patient is a 74-year-old male who presented to clinic with an umbilical hernia that had become increasingly painful to the point where he was having symptoms daily. We discussed repair and he agreed to proceed after discussion of risks, benefits and recovery. Procedure Description: After discussing the risks and benefits of the procedure, the patient signed informed consent.? The operative site was marked and the patient was brought to the operating room and placed on the operating table in supine position.? Care was taken to pad the patient's pressure points.?? The patient was then intubated by anesthesia.?? The operative site was then prepped and draped in the usual sterile fashion.? A time-out was then performed. Local anesthetic was injected into the fascia, skin and subcutaneous tissues. A curvilinear incision was made at the umbilicus. Dissection was carried down into the subcutaneous tissue using cautery. Herniated preperitoneal fat was encountered. Dissection was taken down to the fascia, and the umbilical stalk was carefully dissected off of the hernia sac. Once the hernia was dissected out circumferentially, it was reduced. The fascial edges were then cleared circumferentially. The hernia was 2 cm in size and so the decision was made to use a piece of mesh. A preperitoneal pocket was created using a combination of blunt dissection and cautery. Hemostasis appeared adequate. Once the posterior fascia was clear, a piece of [address] hernia mesh was placed in the preperitoneal space with care to ensure that it laid flat. This was secured into place using 0 PDS interrupted sutures. The tails were then trimmed and the fascial opening was closed with a running 0 PDS. Local anesthetic was injected into the fascia, skin and subcutaneous tissue. The umbilicus was then reapproximated to the fascia using absorbable suture. The skin was then closed with 0 Vicryl dermal and 4-0 Monocryl running subcuticular suture. Glue was then applied. The patient was then woken and transported to the recovery area in stable condition. ? The patient tolerated the procedure well. Findings: 2 cm umbilical hernia containing preperitoneal fat. Anesthesia: GETA Surgeon: Guera Mcnulty MD Estimated blood loss (mL): 10 Condition: stable Disposition: PACU
[2025-02-08] MEDS: CEFAZOLIN 2 GM INJ IVP (07:50)
--- NOTE | 2025-02-08 09:03 | P.ANES_ITS ---
Anesthesia Charges Start Date/Time Anesthesia Start Date: 02/08/25 Anesthesia Start Time: 07:38 Stop Date/Time Anesthesia Stop Date: 02/08/25 Anesthesia Stop Time: 09:01 Summary Extremes of Age - Over 70 or under 1: REFINING EQUIPMENT OPERATOR Coding CPT Codes CPT Codes: ANESTH REPAIR OF HERNIA - 22745 ([id number]) P3 - PATIENT W/SEVERE SYS DISEASE, QZ - REFINING EQUIPMENT OPERATOR SVC W/O BUMPER MACHINE OPERATOR BY Additional Codes: Summary - Extremes of Age - Over 70 or under 1: REFINING EQUIPMENT OPERATOR ([id number])
--- NOTE | 2025-02-08 09:03 | W.ANESCHARGE ---
Anesthesia Charges Start Date/Time Anesthesia Start Date: 02/08/25 Anesthesia Start Time: 07:38 Stop Date/Time Anesthesia Stop Date: 02/08/25 Anesthesia Stop Time: 09:01 Summary Extremes of Age - Over 70 or under 1: ROBOTICS TESTING TECHNICIAN Coding CPT Codes CPT Codes: ANESTH REPAIR OF HERNIA - 32057 ([id number]) P3 - PATIENT W/SEVERE SYS DISEASE, QZ - ROBOTICS TESTING TECHNICIAN SVC W/O METAL NUMERICAL TOOL PROGRAMMER BY Additional Codes: Summary - Extremes of Age - Over 70 or under 1: ROBOTICS TESTING TECHNICIAN ([id number])
[2025-02-08] MEDS: HYDROCODONE-ACETAMIN 5-325 MG 1 TAB PO (10:08)
== END 2025-02-08 10:22 | disposition home or self-care (01) ==
LOC: OR 06:09
PROVIDERS: PCP Internal Medicine; Visit Provider Surgery
PROC: (CPT 49591; principal; 2025-02-08 07:30)
DX: K42.9 Umbilical hernia without obstruction or gangrene (principal)
CPT/HCPCS: 49591; 00750; 99100; A9270; C1781; J0330; J0665; J0690; J1100; J2405; J2704; J3010; J3490; J7120